=== PATIENT | female | born 1940 | race Caucasian/White ===

== ENCOUNTER 2023-04-10 11:25 | Inpatient (IN) | payer MEDICARE, BC ==
[~2023-04-10 11:25] MED LIST: Iopamidol-370 76% 500 ML MDV (1 ML CHARGE) ONE
[2023-04-10] MEDS ORDERED: Morphine 4 MG/ML VIAL ONE (11:59)
[2023-04-10 12:15] LABS: #Neutrophils 5.9 thou/uL (1.40-6.50); %Basophils 0.3 % (0.0-1.0); %Eosinophils 0.6 % (0.0-10.0); %Lymphocytes 4.7 % (21.0-51.0); %Monocytes 0.5 % (0.0-10.0); %Neutrophils 93.3 % (42.0-75.0); Hemoglobin 16.4 g/dL (12.0-16.0); Mean Corpuscular HGB CONC 33.3 g/dL (32.0-36.0); Mean Corpuscular Hemoglobin 31.5 pg (27.0-31.0); Mean Corpuscular Volume 94.8 fl (78.0-98.0); Mean Platelet Volume 10.4 fL (7.4-10.4); Platelet Count 188 10x3/uL (130-400); RBC Distribution Width 13.3 % (11.5-14.5); White Blood Cell (WBC) Count 6.3 10x3/uL (4.8-10.8)
[2023-04-10 12:49] LABS: ALT (SGPT) 48 U/L (8-55); AST (SGOT) 121 U/L (5-34); Albumin 3.8 g/dL (3.4-4.8); Alkaline Phosphatase 154 U/L (40-110); Anion Gap 14 mmol/L (10-20); BUN (Urea Nitrogen) 15 mg/dL (9.8-20.1); Bilirubin, Total 1.5 mg/dL (0.2-1.2); Calc. Creatinine Clearance 0 mL/min (70-130); Calcium 9.7 mg/dL (7.8-10.44); Carbon Dioxide 24 mmol/L (23-31); Chloride 104 mmol/L (98-107); Estimated GFR 66; Globulin 2.4 g/dL (2.4-3.5); Glucose 97 mg/dL (83-110); Lipase 11 U/L (8-78); Magnesium 1.6 mg/dL (1.6-2.6); Potassium 4.2 mmol/L (3.5-5.1); Protein, Total 6.2 g/dL (5.8-8.1); Sodium 138 mmol/L (136-145)
[2023-04-10 13:10] LABS: Bacteria/HPF None Seen HPF (None Seen); Bilirubin Negative (Negative); Blood, Urine Trace (Negative); CAUTI Indications for Culture Pelvic or flank pain; Clarity Clear (Clear); Glucose, Urine (Dipstick) Normal (Negative); Ketone, Urine Negative (Negative); Leukocyte 75 Leu/uL (Negative); Nitrite Negative (Negative); Protein, Urine (Dipstick) 10 mg/dL (Neg-Trace); RBC/HPF 0-3 HPF (0-3); Specific Gravity, Urine 1.011 (1.002-1.036); Squamous Epithelial 0-3 HPF (0-3); Urobilinogen Normal mg/dL (Less than 2); WBC/HPF 0-3 HPF (0-3)
[2023-04-10 13:11] LABS: Urine Culture Reflex No No
[2023-04-10 15:16] LABS: Lactic Acid 2.9 mmol/L (0.5-2.2)
[2023-04-10] MEDS ORDERED: Acetaminophen 325 MG TAB ONE (17:19)
[2023-04-10] MEDS ORDERED: Vancomycin 1 GM/200 ML (FROZEN) BAG ONE (19:29)
[2023-04-10] MEDS ORDERED: cefTRIAXone (ROCEPHIN) 2 GM VIAL ONE (19:29)
[2023-04-10 22:02] LABS: Lactic Acid 2.6 mmol/L (0.5-2.2)
[2023-04-10] MEDS ORDERED: Calcium Carbonate 500 MG ChewTAB PO PRN (22:12)
[2023-04-10] MEDS ORDERED: Senokot S 8.6-50 MG TAB PO PRN (22:12)
[2023-04-10] MEDS ORDERED: Ondansetron ODT 4 MG TAB PO PRN (22:12)
[2023-04-10] MEDS ORDERED: Lactated Ringer's 1,000 ML IV SCH (22:15)
[2023-04-10 23:40] VITALS: BMI 42.9
[2023-04-11] MEDS: Acetaminophen 325 MG TAB PO PRN ×2 (01:11→13:56)
[2023-04-11] MEDS ORDERED: Ketorolac Tromethamine 30 MG/ML VIAL IVP SCH (06:15)
[2023-04-11 06:40] LABS: #Basophils 0.1 thou/uL (0.0-0.2); #Eosinphils 0.1 thou/uL (0.0-0.7); #Monocytes 0.7 thou/uL (0.11-0.59); #Neutrophils 14.1 thou/uL (1.40-6.50); %Basophils 0.4 % (0.0-1.0); %Eosinophils 0.5 % (0.0-10.0); %Monocytes 4.1 % (0.0-10.0); %Neutrophils 88.6 % (42.0-75.0); Mean Corpuscular HGB CONC 32.3 g/dL (32.0-36.0); Mean Platelet Volume 10.7 fL (7.4-10.4); Platelet Count 153 10x3/uL (130-400); RBC Distribution Width 13.6 % (11.5-14.5); Red Blood Cell (RBC) Count 4.51 mill/uL (4.20-5.40); White Blood Cell (WBC) Count 15.9 10x3/uL (4.8-10.8)
[2023-04-11 06:49] LABS: Lactic Acid 1.1 mmol/L (0.5-2.2)
[2023-04-11 07:02] LABS: Anion Gap 13 mmol/L (10-20); BUN (Urea Nitrogen) 12 mg/dL (9.8-20.1); Calc. Creatinine Clearance 96 mL/min (70-130); Calcium 8.8 mg/dL (7.8-10.44); Carbon Dioxide 24 mmol/L (23-31); Chloride 107 mmol/L (98-107); Estimated GFR 66; Glucose 94 mg/dL (83-110); Potassium 3.9 mmol/L (3.5-5.1); Sodium 140 mmol/L (136-145)
[2023-04-11] MEDS: Loratadine 10 MG TAB PO SCH (08:53)
[2023-04-11] MEDS: Famotidine 20 MG TAB PO SCH ×2 (08:53→20:39)
[2023-04-11] MEDS: Famotidine/PF 20 mg/2ml Vial SLOW IVP SCH ×2 (08:53→20:30)
[2023-04-11] MEDS ORDERED: cefTRIAXone\\ROCEPHIN 2 GM in Sodium Chloride 0.9% 100 ML IVPB SCH (10:00)
[2023-04-11] MEDS: Lactated Ringer's 1,000 ML IV SCH (14:08)
[2023-04-11] MEDS ORDERED: traMADol HCl 50 MG TAB PO PRN (15:00)
[2023-04-11 22:22] LABS: #Eosinphils 0.2 thou/uL (0.0-0.7); #Monocytes 0.7 thou/uL (0.11-0.59); #Neutrophils 8.7 thou/uL (1.40-6.50); %Basophils 0.4 % (0.0-1.0); %Monocytes 6.2 % (0.0-10.0); Hemoglobin 14.5 g/dL (12.0-16.0); Mean Corpuscular HGB CONC 32.4 g/dL (32.0-36.0); Mean Corpuscular Hemoglobin 31.5 pg (27.0-31.0); Mean Platelet Volume 10.2 fL (7.4-10.4); Platelet Count 140 10x3/uL (130-400); RBC Distribution Width 13.7 % (11.5-14.5); Red Blood Cell (RBC) Count 4.61 mill/uL (4.20-5.40); White Blood Cell (WBC) Count 10.7 10x3/uL (4.8-10.8)
[2023-04-11 22:40] LABS: Lactic Acid 2.2 mmol/L (0.5-2.2)
[2023-04-11] MEDS: Ondansetron PF 4 MG/2 ML Vial IVP PRN (23:45)
[2023-04-11] MEDS: Ketorolac Tromethamine 30 MG/ML VIAL IVP SCH (23:51)
[2023-04-11] MEDS ORDERED: Lidocaine 4% Patch TD SCH (23:59)
[2023-04-11] MEDS ORDERED: Losartan 25 MG TAB PO SCH (23:59)
[2023-04-12 00:28] LABS: SARS-CoV-2 NAA Rapid Test Not Detected (NotDetected)
[2023-04-12] MEDS: Lactated Ringer's 1,000 ML IV SCH ×2 (01:25→02:02)
[2023-04-12] MEDS ORDERED: Lactated Ringer's 1,000 ML IV SCH (05:15)
[2023-04-12] MEDS ORDERED: Metoclopramide HCl 10 MG/2 ML VIAL IVP SCH (05:45)
[2023-04-12 07:05] LABS: #Basophils 0.1 thou/uL (0.0-0.2); #Eosinphils 0.2 thou/uL (0.0-0.7); #Monocytes 0.8 thou/uL (0.11-0.59); #Neutrophils 7.9 thou/uL (1.40-6.50); %Basophils 0.5 % (0.0-1.0); %Lymphocytes 13.8 % (21.0-51.0); %Monocytes 7.5 % (0.0-10.0); %Neutrophils 75.4 % (42.0-75.0); Hemoglobin 14.7 g/dL (12.0-16.0); Mean Corpuscular HGB CONC 32.7 g/dL (32.0-36.0); Mean Corpuscular Hemoglobin 31.8 pg (27.0-31.0); Mean Corpuscular Volume 97.2 fl (78.0-98.0); Mean Platelet Volume 10.4 fL (7.4-10.4); Platelet Count 157 10x3/uL (130-400); RBC Distribution Width 13.7 % (11.5-14.5); Red Blood Cell (RBC) Count 4.62 mill/uL (4.20-5.40); White Blood Cell (WBC) Count 10.4 10x3/uL (4.8-10.8)
[2023-04-12 07:31] LABS: ALT (SGPT) 105 U/L (8-55); AST (SGOT) 54 U/L (5-34); Albumin 3.4 g/dL (3.4-4.8); Alkaline Phosphatase 129 U/L (40-110); Anion Gap 12 mmol/L (10-20); BUN (Urea Nitrogen) 10 mg/dL (9.8-20.1); Bilirubin, Total 0.6 mg/dL (0.2-1.2); Calc. Creatinine Clearance 99 mL/min (70-130); Calcium 9.5 mg/dL (7.8-10.44); Carbon Dioxide 27 mmol/L (23-31); Chloride 107 mmol/L (98-107); Estimated GFR 68; Globulin 2.4 g/dL (2.4-3.5); Glucose 117 mg/dL (83-110); Potassium 3.7 mmol/L (3.5-5.1); Protein, Total 5.8 g/dL (5.8-8.1); Sodium 142 mmol/L (136-145)
[2023-04-12] MEDS: Famotidine/PF 20 mg/2ml Vial SLOW IVP SCH ×2 (08:37→19:59)
[2023-04-12] MEDS: cefTRIAXone\\ROCEPHIN 1 GM in Sodium Chloride 0.9% 100 ML IVPB SCH (08:38)
[2023-04-12] MEDS: Ketorolac Tromethamine 30 MG/ML VIAL IVP SCH (08:38)
[2023-04-12] MEDS: Loratadine 10 MG TAB PO SCH (08:39)
[2023-04-12] MEDS: Famotidine 20 MG TAB PO SCH ×2 (08:39→20:13)
[2023-04-12] MEDS: Losartan 25 MG TAB PO SCH (08:39)
[2023-04-12] MEDS ORDERED: Non-Formulary Item 1 EACH (Losartan Potassium [Losartan Potassium] 100 MG Tablet) PO SCH (09:00)
[2023-04-12] MEDS ORDERED: Non-Formulary Item 1 EACH (Omeprazole [Omeprazole] 20 MG Capsule.Dr) PO SCH (09:00)
[2023-04-12] MEDS ORDERED: Transdermal Patch Removal TOP SCH (12:00)
[2023-04-12] MEDS: Carvedilol 6.25 MG TAB PO SCH (16:10)
[2023-04-12] MEDS ORDERED: Ketorolac Tromethamine 30 MG/ML VIAL IVP SCH (20:45)
[2023-04-12] MEDS ORDERED: hydrALAZINE 20 MG/ML VIAL SLOW IVP SCH (20:45)
[2023-04-12] MEDS ORDERED: Morphine 2 MG/ML VIAL SLOW IVP PRN (21:23)
[2023-04-12] MEDS: Ondansetron PF 4 MG/2 ML Vial IVP PRN (21:24)
[2023-04-12] MEDS ORDERED: Ketorolac Tromethamine 30 MG/ML VIAL IVP PRN (21:32)
[2023-04-12] MEDS ORDERED: Ondansetron PF 4 MG/2 ML Vial IVP SCH (23:15)
[2023-04-12] MEDS ORDERED: Melatonin 3 MG TAB PO PRN (23:23)
[2023-04-12] MEDS ORDERED: Ipratropium/Albuterol 3 ML NEB NEB SCH (23:30)
[2023-04-12] MEDS: Labetalol HCl 100 MG/20 ML VIAL SLOW IVP PRN (23:57)
[2023-04-13] MEDS: Labetalol HCl 100 MG/20 ML VIAL SLOW IVP PRN ×2 (01:10→04:39)
[2023-04-13] MEDS: Metoclopramide HCl 10 MG/2 ML VIAL IVP PRN (06:29)
[2023-04-13] MEDS: Loratadine 10 MG TAB PO SCH (08:45)
[2023-04-13] MEDS: cefTRIAXone\\ROCEPHIN 1 GM in Sodium Chloride 0.9% 100 ML IVPB SCH (08:45)
[2023-04-13] MEDS: Famotidine 20 MG TAB PO SCH ×2 (08:45→20:53)
[2023-04-13] MEDS: Losartan 25 MG TAB PO SCH (08:45)
[2023-04-13] MEDS: Carvedilol 6.25 MG TAB PO SCH ×2 (08:45→16:57)
[2023-04-13] MEDS: Famotidine/PF 20 mg/2ml Vial SLOW IVP SCH (08:46)
[2023-04-13] MEDS: Ondansetron PF 4 MG/2 ML Vial IVP PRN (08:50)
[2023-04-13] MEDS ORDERED: Bisoprolol Fumarate/HCTZ 10 mg/6.25 mg Tablet PO SCH (09:00)
[2023-04-13] MEDS ORDERED: Lorazepam 2 MG/ML VIAL SLOW IVP PRN (10:00)
[2023-04-13] MEDS ORDERED: Hydrochlorothiazide 25 MG TAB PO SCH (10:00)
[2023-04-13] MEDS ORDERED: Meropenem 1 GM in Sodium Chloride 0.9% 100 ML IVPB SCH (16:00)
[2023-04-13] MEDS: Acetaminophen 325 MG TAB PO PRN (20:55)
[2023-04-13] MEDS: Acetaminophen/Codeine 30-300mg Tablet PO PRN (23:58)
[2023-04-13] MEDS: Meropenem 1 GM in Sodium Chloride 0.9% 100 ML IVPB SCH (23:58)
[2023-04-14] MEDS: Acetaminophen 325 MG TAB PO PRN ×2 (05:02→21:35)
[2023-04-14] MEDS ORDERED: hydrALAZINE 20 MG/ML VIAL SLOW IVP SCH (05:30)
[2023-04-14] MEDS: Acetaminophen/Codeine 30-300mg Tablet PO PRN (06:15)
[2023-04-14 07:28] LABS: #Basophils 0.1 thou/uL (0.0-0.2); #Eosinphils 0.4 thou/uL (0.0-0.7); #Monocytes 0.9 thou/uL (0.11-0.59); #Neutrophils 5.2 thou/uL (1.40-6.50); %Basophils 0.9 % (0.0-1.0); %Eosinophils 4.4 % (0.0-10.0); %Lymphocytes 21.2 % (21.0-51.0); %Neutrophils 61.6 % (42.0-75.0); Hemoglobin 14.2 g/dL (12.0-16.0); Mean Corpuscular Hemoglobin 30.9 pg (27.0-31.0); Mean Corpuscular Volume 96.7 fl (78.0-98.0); Mean Platelet Volume 10.5 fL (7.4-10.4); Platelet Count 161 10x3/uL (130-400); RBC Distribution Width 13.8 % (11.5-14.5); Red Blood Cell (RBC) Count 4.59 mill/uL (4.20-5.40); White Blood Cell (WBC) Count 8.5 10x3/uL (4.8-10.8)
[2023-04-14 07:48] LABS: Anion Gap 14 mmol/L (10-20); BUN (Urea Nitrogen) 9 mg/dL (9.8-20.1); Calc. Creatinine Clearance 102 mL/min (70-130); Calcium 9.5 mg/dL (7.8-10.44); Carbon Dioxide 26 mmol/L (23-31); Chloride 103 mmol/L (98-107); Estimated GFR 70; Glucose 102 mg/dL (83-110); Potassium 3.5 mmol/L (3.5-5.1); Sodium 139 mmol/L (136-145)
[2023-04-14] MEDS: Carvedilol 6.25 MG TAB PO SCH ×2 (08:35→16:19)
[2023-04-14] MEDS: Meropenem 1 GM in Sodium Chloride 0.9% 100 ML IVPB SCH ×2 (08:35→16:19)
[2023-04-14] MEDS: Loratadine 10 MG TAB PO SCH (08:36)
[2023-04-14] MEDS: Losartan 25 MG TAB PO SCH (08:36)
[2023-04-14] MEDS: Famotidine 20 MG TAB PO SCH ×2 (08:36→21:31)
[2023-04-14] MEDS ORDERED: Hydrochlorothiazide 25 MG TAB PO SCH (09:00)
[2023-04-14] MEDS ORDERED: hydrALAZINE 25 MG TAB PO SCH ×3 (09:00→11:00)
[2023-04-14] MEDS: Metoclopramide HCl 10 MG/2 ML VIAL IVP PRN (09:52)
[2023-04-14] MEDS ORDERED: Naloxone HCl 0.4 mg/ml Vial IV SCH (11:15)
[2023-04-14] MEDS ORDERED: Sodium Chloride 0.9% 500 ML IV SCH (11:15)
[2023-04-14] MEDS ORDERED: Naloxone HCl 0.4 mg/ml Vial ONE (11:16)
[2023-04-14] MEDS: hydrALAZINE 25 MG TAB PO SCH ×2 (16:18→21:31)
[2023-04-15] MEDS: Meropenem 1 GM in Sodium Chloride 0.9% 100 ML IVPB SCH ×2 (00:23→08:59)
[2023-04-15] MEDS: Acetaminophen 325 MG TAB PO PRN (02:17)
[2023-04-15] MEDS: Carvedilol 6.25 MG TAB PO SCH (08:59)
[2023-04-15] MEDS: hydrALAZINE 25 MG TAB PO SCH (09:00)
[2023-04-15] MEDS: Famotidine 20 MG TAB PO SCH (09:00)
[2023-04-15] MEDS: Losartan 25 MG TAB PO SCH (09:00)
[2023-04-15] MEDS: Loratadine 10 MG TAB PO SCH (09:00)
[2023-04-15 15:02] VITALS: BP 151/91; TEMP 97.8
== END 2023-04-15 15:07 | disposition home or self-care (01) | DRG 690 ==
LOC: ERS 11:25 → T4-B 20:28 → OBSVTOIN 04-11 13:06
PROVIDERS: ADMIT Student in an Organized Health Care Education/Training Program; ATTEND Hospitalist
DX: N10 Acute pyelonephritis (principal); R78.81 Bacteremia; E87.20 Acidosis, unspecified; I10 Essential (primary) hypertension; K21.9 Gastro-esophageal reflux disease without esophagitis; R51.9 Headache, unspecified; B96.20 Unspecified Escherichia coli [E. coli] as the cause of diseases classified elsewhere; Z20.822 Contact with and (suspected) exposure to COVID-19; I71.20 Thoracic aortic aneurysm, without rupture, unspecified; Z90.49 Acquired absence of other specified parts of digestive tract; Z98.51 Tubal ligation status
CPT/HCPCS: 36415; 36416; 70450; 71045; 71275; 72170; 74174; 80048; 80053; 81001; 83605; 83690; 83735; 83880; 84439; 84443; 84484; 85025; 87040; 87077; 87149; 87186; 93005; 94640; 96361; 96365; 96366; 96367; 96376; G0378; J0360; J0696; J1885; J2060; J2185; J2270; J2310; J2405; J2765; J3370-JW; J3490; J7030; J7120; J7620; Q9967